=== PATIENT | female | born 1955 | race Caucasian/White ===

== ENCOUNTER 2018-08-15 09:47 | Emergency (ER) | payer OTHER, SELFPAY ==
[2018-08-15 09:50] VITALS: BP 152/99; PULSE 66; RESP 18; TEMP 36.3; O2SAT 99
[2018-08-15 10:13] LABS: Add Manual Diff / Slide Review NO; Basophils Absolute Auto 0 /uL (0-100); Basophils Percent Auto 0.5 % (0-2); Eosinophils Absolute Auto 0 /uL (0-450); Eosinophils Percent Auto 0.6 % (2-4); Hemoglobin 14.7 g/dL (12.0-16.0); Lymphocytes Absolute Auto 1400 /uL (1100-4500); Lymphocytes Percent Auto 19.6 % (25-40); Mean Corpuscular HGB Conc 34.2 % (30-36); Mean Corpuscular Hemoglobin 31.9 PG (26-34); Mean Corpuscular Volume 93.4 fL (80-100); Monocytes Absolute Auto 300 /uL (0-900); Monocytes Percent Auto 3.9 % (3-14); Neutrophils Absolute Auto 5600 /uL (1500-7000); Neutrophils Percent Auto 75.4 % (50-75); Platelet Count 157 X10^3/uL (150-400); Red Cell Distribution Width 12.8 % (11.6-14.8); White Blood Cell Count 7.4 X10^3/uL (4.5-11.0)
[2018-08-15] MEDS: SODIUM CHLORIDE 0.9% 1,000 ML 1000 ML IV (10:16)
[2018-08-15] MEDS: ONDANSETRON 4 MG/2 ML INJ IV (10:16)
[2018-08-15] MEDS: MECLIZINE HCL 12.5 MG TABLET 25 MG PO (10:17)
[2018-08-15 10:26] LABS: Alanine Aminotransferase 20 IU/L (9-52); Albumin 4.7 g/dL (3.5-5.0); Albumin Globulin Ratio 1.5 (1.0-2.8); Alkaline Phosphatase 78 U/L (38-126); Aspartate Aminotransferase 27 IU/L (14-36); BUN Creatinine Ratio 24.3 (6-22); Blood Urea Nitrogen 17 mg/dL (7-17); Calcium 9.3 mg/dL (8.4-10.2); Carbon Dioxide 29 mmol/L (22-32); Chloride 102 mmol/L (98-107); Estimated Glomerular Filt Rate > 60.0 mL/min (>60); Globulin 3.1 g/dL (1.7-4.1); Glucose 148 mg/dL (80-110); HEMOLYSIS < 15 (0-50); Potassium 3.8 mmol/L (3.4-5.1); Sodium 141 mmol/L (137-145); Total Protein 7.8 g/dL (6.3-8.2)
--- NOTE | 2018-08-15 10:29 | ED.DIZZY ---
HPI - Dizziness General Chief Complaint: Dizziness Stated Complaint: Acute dizziness, nausea Time Seen by Provider: 08/15/18 09:59 Source: patient Mode of arrival: ambulatory Limitations: no limitations History of Present Illness HPI Narrative: Patient is a 62-year-old female who presents with dizziness. His she said she was doing well and started early this morning when she woke up. Every time she stands up or moves she feels like the room is spinning. It does get better when she sits down. She has been nauseous she has vomited 1 time. She has no chest pain heart palpitations. It is definitely worse with her eyes open and better with her eyes closed. She has no weakness slurring of speech facial drooping numbness or tingling. MD complaint: dizziness Onset (ago): hour(s) Description: room spinning History of similar episodes: No History of trauma: No Related Data Previous Rx's Medication Instructions Recorded meclizine 25 mg PO TID PRN #14 tab 08/15/18 ondansetron 4 mg PO Q6-8H PRN #10 tab 08/15/18 Allergies Allergy/AdvReac Type Severity Reaction Status Date / Time No Known Drug Allergies Allergy Unverified 07/28/18 08:55 Review of Systems Review of Systems ROS Unobtainable: All systems reviewed & are unremarkable except as noted in HPI and below Constitutional Denies chills, Denies fever(s), Denies lethargy and Denies weakness Eyes Denies change in vision, Denies eye discharge, Denies irritation and Denies loss of vision ENT Ears, Nose, Mouth, and Throat: Denies change in voice, Denies neck pain and Denies sore throat Cardiovascular Denies chest pain, Denies irregular heart rhythm, Reports lightheadedness, Denies palpitations, Denies dyspnea, Denies dyspnea on exertion and Denies orthopnea Respiratory Denies cough, Denies dyspnea, Denies dyspnea on exertion and Denies wheezing Gastrointestinal Gastrointestinal: Denies abdominal pain, Denies change in bowel habits, Denies diarrhea, Denies nausea and Denies vomiting Musculoskeletal Denies neck pain Integumentary/Breasts Denies pruritus, Denies erythema, Denies rash and Denies wounds Neurologic Denies loss of vision and Denies weakness Endocrine Denies palpitations Allergic/Immunologic Denies wheezing [facility] Medical History Patient denies significant medical history (Acute) Social History Smoking Status: Never smoker Social History Smoking Status: Never smoker Exam Initial Vital Signs Initial Vital Signs: Vital Signs Temperature 97.4 F L 08/15/18 09:50 Pulse Rate 66 08/15/18 09:50 Respiratory Rate 18 08/15/18 09:50 Blood Pressure 152/99 H 08/15/18 09:50 Pulse Oximetry 99 08/15/18 09:50 GENERAL: Well-appearing, well-nourished and in no acute distress. HEENT: Head atraumatic,EOMI, pupils reactive, + nystagmus face symmetric, moist mucous membranes CARDIOVASCULAR: Regular rate and rhythm without murmurs, rubs or gallops. RESPIRATORY: Breath sounds equal bilaterally, no wheezes rales or rhonchi. ABDOMEN: Soft, nontender. Normoactive bowel sounds all 4 quadrants. No guarding or rebound. EXTREMITIES: Normal range of motion, no clubbing or edema. Neurovascularly intact NEUROLOGICAL: Alert and oriented x4.Normal gait and speech. Cranial nerves II through XII grossly intact. Good [id number], good [id number]-[id number], strength equal bilaterally, no dysarthria or aphasia, sensation in tact to soft touch bilaterally, no visual changes, no facial droop SKIN: Warm, dry, no laceration, no petechiae, no rashes or lesions. Scores NIH Stroke Scale Level of Conciousness: Alert, keenly responsive Ask month/age: Answers both questions correctly. Open/close eyes, close hand: Performs both tasks correctly Best gaze horizontal: Normal Visual frank: No visual loss Facial palsy: Normal symetrical movement Left arm drift: No drift for full 10 sec Right arm drift: No drift for full 10 sec Left leg drift: No drift for full 10 sec Right leg drift: No drift for full 10 sec Limb ataxia: Absent Sensory on face/arms/legs: Normal, no sensory loss Best language: No aphasia, normal Dysarthria: Normal Extinction or inattention: No abnormality Total NIH Stroke scale score: 0 Course Orders Ordered: ED Orders 08/15/18 09:55 Complete Blood Count AUTO DIFF Stat Comprehensive Metabolic Panel Stat Discontinued Medications Sodium Chloride (Normal Saline 0.9%) 1,000 mls @ 1,000 mls/hr IV CONT LEW Last Infusion: 08/15/18 12:56 Dose: 0 mls/hr Admin: 08/15/18 10:16 Dose: 1,000 mls/hr Lorazepam (Ativan) 0.5 mg IV NOW ONE Stop: 08/15/18 11:33 Last Admin: 08/15/18 11:41 Dose: 0.5 mg Meclizine HCl (Antivert) 25 mg PO NOW ONE Stop: 08/15/18 10:01 Last Admin: 08/15/18 10:17 Dose: 25 mg Ondansetron HCl (Zofran) 4 mg IV NOW ONE Stop: 08/15/18 10:01 Last Admin: 08/15/18 10:16 Dose: 4 mg Ondansetron HCl (Zofran) 4 mg IV NOW ONE Stop: 08/15/18 11:41 Ondansetron HCl (Zofran Odt) 4 mg SL NOW ONE Stop: 08/15/18 13:09 Last Admin: 08/15/18 13:00 Dose: 4 mg Vital Signs - 8 hr 08/15/18 09:50 08/15/18 10:43 08/15/18 11:31 Temperature 97.4 F L Pulse Rate 66 60 67 Respiratory Rate 18 13 25 H Blood Pressure 152/99 H Blood Pressure [Right Arm] 130/76 127/71 Pulse Oximetry 99 99 100 08/15/18 12:30 Temperature Pulse Rate 75 Respiratory Rate 15 Blood Pressure Blood Pressure [Right Arm] 125/66 Pulse Oximetry 100 MDM - Dizziness Lab Data Attestation: I reviewed the patient's lab results. Result diagrams: 08/15/18 09:55 08/15/18 09:55 Lab Results 08/15/18 08/15/18 Range/Units 09:55 09:55 WBC 7.4 (4.5-11.0) X10^3/uL RBC 4.60 (4.0-5.2) X10^6/uL Hgb 14.7 (12.0-16.0) g/dL Hct 43.0 (36-46) % MCV 93.4 (80-100) fL MCH 31.9 (26-34) PG MCHC 34.2 (30-36) % RDW 12.8 (11.6-14.8) % Plt Count 157 (150-400) X10^3/uL Neut % (Auto) 75.4 H (50-75) % Lymph % (Auto) 19.6 L (25-40) % Kleberg % (Auto) 3.9 (3-14) % Eos % (Auto) 0.6 L (2-4) % Baso % (Auto) 0.5 (0-2) % Neut # (Auto) 5600 (1148-0339) /uL Lymph # (Auto) 1400 (2085-6079) /uL Kleberg # (Auto) 300 (0-900) /uL Eos # (Auto) 0 (0-450) /uL Baso # (Auto) 0 (0-100) /uL Sodium 141 (137-145) mmol/L Potassium 3.8 (3.4-5.1) mmol/L Chloride 102 (98-107) mmol/L Carbon Dioxide 29 (22-32) mmol/L BUN 17 (7-17) mg/dL Creatinine 0.70 (0.52-1.04) mg/dL Estimated GFR > 60.0 (>60) mL/min BUN/Creatinine Ratio 24.3 H (6-22) Glucose 148 H (80-110) mg/dL Calcium 9.3 (8.4-10.2) mg/dL Total Bilirubin 1.0 (0.2-1.3) mg/dL AST 27 (14-36) IU/L ALT 20 (9-52) IU/L Alkaline Phosphatase 78 (38-126) U/L Total Protein 7.8 (6.3-8.2) g/dL Albumin 4.7 (3.5-5.0) g/dL Globulin 3.1 (1.7-4.1) g/dL Albumin/Globulin Ratio 1.5 (1.0-2.8) ECG Data Attestation: I personally reviewed and interpreted this ECG as follows: Prior ECG tracings: not available for review Interpretation: Rate [address] changes ID interval 128 QRS 114 QTC 440 no T-wave inversion or sign of ischemia. No priors to compare MDM Narrative Medical decision making narrative: Patient is feeling better little after some Zofran and meclizine. However still nauseous S a little dizzy. Will try level of the Ativan. She went to sleep for some time briefly. Overall feeling better. She feels like she could go home and sleep at home. She is able to open her eyes. She still feels like the room is slightly spinning. At this time no focal deficits, at this time no need any imaging. IV was pulled she got ready for discharge. However she vomited. She got a dose of ODT Zofran. She still feels like she is able to go home she was offered head CT and more medication. However still opts for going home. Has been agrees with this. I discussed all findings with the patient and spouse, Education has been performed regarding treatment plan, diagnosis, warning signs and symptoms and all concerns have been addressed. Verbally agree with and understood all of the above. Discharge Plan Departure Patient Disposition: Home Clinical Impression: Vertigo Discharge Date/Time: 08/15/18 13:35 Interventions: ED Discharge Assessment Last Done: 08/15/18 12:56 Instructions: DI for Vertigo Activity Restrictions/Additional Instructions: *You have been diagnosed with vertigo *What to do: This should stop, increase activity as tolerated increase fluids as tolerated *Continue to take medications as directed--> Sent to [facility] in [place] Zofran 4 mg every 6-8 hours if needed for nausea or vomiting Meclizine 25 mg comes every 8 hours if needed for dizziness *Follow up with your primary care provider in 2-3 days *Return to ER if you should have persistent vomiting weakness and difficulty speaking facial droop or any new, worsening or concerning symptoms Prescriptions: New meclizine 25 mg tablet 25 mg PO TID PRN (Reason: motion sickness) Qty: 14 RF: 0 ondansetron 4 mg tablet,disintegrating 4 mg PO Q6-8H PRN (Reason: nausea and vomiting) Qty: 10 RF: 0 Referrals: Benson Irizarry MD [Primary Care Provider] -
[2018-08-15 10:43] VITALS: BP 130/76; PULSE 60; RESP 13; O2SAT 99
[2018-08-15 11:31] VITALS: BP 127/71; PULSE 67; RESP 25; O2SAT 100
[2018-08-15] MEDS: LORazepam 2 MG/ML INJ 0.5 MG IV (11:41)
[2018-08-15 12:30] VITALS: BP 125/66; PULSE 75; RESP 15; O2SAT 100
[2018-08-15] MEDS: ONDANSETRON 4 MG ODT SL (13:00)
--- NOTE | 2018-08-15 13:45 | PC.NURSE ---
Pt was Discharged from ER. Upon getting dressed became nauseous and had an episode of emesis. Provider aware. Received order for ODT Zofran. Allowed Pt to sit in room. Continued to feel nausea. Provider in room to see patient. Pt and spouse decided to discharge and if she is unable to keep anything down with the medications, to come back to emergency department. PT and spouse stated understanding. Continued with d/c at this time.
== END 2018-08-15 13:35 | disposition home or self-care (01) ==
PROVIDERS: Emergency Provider Emergency Medicine; PCP Family Medicine
DX: R42 Dizziness and giddiness (principal)
CPT/HCPCS: 36591; 80053; 85025; 96361; 96374; 96375; 99283; 99284; J2060; J2405

== ENCOUNTER → 2018-10-15 08:05 | Outpatient (CLI) | payer OTHER, SELFPAY ==
[2018-10-15 09:21] LABS: BUN Creatinine Ratio 23.8 (6-22); Blood Urea Nitrogen 19 mg/dL (7-17); Calcium 9.4 mg/dL (8.4-10.2); Carbon Dioxide 31 mmol/L (22-32); Chloride 101 mmol/L (98-107); Cholesterol 216 mg/dL (140-199); Estimated Glomerular Filt Rate > 60.0 mL/min (>60); Glucose 102 mg/dL (80-110); HDL Cholesterol 89 mg/dL (40-60); HEMOLYSIS < 15 (0-50); LDL Cholesterol Calculated 111 mg/dL (<100); Potassium 4.9 mmol/L (3.4-5.1); Sodium 139 mmol/L (137-145); Triglycerides 80 mg/dL (35-150)
[2018-10-15 09:52] LABS: Thyroid Stimulating Hormone 1.92 uIU/mL (0.47-4.68)
== END ==
PROVIDERS: PCP Family Medicine; Visit Provider Family Medicine
DX: R42 Dizziness and giddiness (principal)
CPT/HCPCS: 36415; 80048; 80061; 84443

== ENCOUNTER → 2018-10-27 16:00 | Outpatient (CLI) | payer OTHER, SELFPAY ==
--- NOTE | 2018-10-27 16:02 | DI.MRI.S_ITS ---
PROCEDURE: MR BRAIN (IAC) WWO CON INDICATIONS: vertigo TECHNIQUE: Noncontrast sagittal T1 spin echo, axial FLAIR, axial gradient echo, axial diffusion and ADC through the brain. Axial thin-slice 3D CISS, coronal TruFISP, axial T1 spin echo with fat saturation through the internal auditory canals. After the administration of contrast, thin slice axial and coronal T1 spin echo with fat saturation through the internal auditory canals, and axial T1 spin echo with fat saturation through the brain. COMPARISON: None. FINDINGS: Image quality: Excellent. Cerebellopontine angles: No cerebellopontine angle masses. Inner ear structures appear normally formed. No suspicious enhancement in the internal auditory canal or along the course of the 7th cranial nerve. CSF spaces: Ventricles are normal in size and shape. No extra-axial fluid collections. Basal cisterns are patent. Brain: No intracranial bleeds or mass effects. Willams-white matter interface is intact. No abnormal intracranial enhancement. Diffusion weighted images demonstrate no acute ischemic insults. Brainstem appears normal. Normal intravascular flow voids are present. Skull and face: Calvarial marrow signal is normal. Orbits appear normal. Sinuses: Sinuses and mastoids are clear. IMPRESSION: No abnormal enhancement or discrete mass seen within the cerebellopontine angle, or IAC. No evidence of acute ischemia. Diffuse small white matter signal changes, probably represent chronic microvascular ischemic disease, versus statistically less likely demyelination or other infectious, inflammatory, neurodegenerative etiology, technically nonspecific. Dictated by: Kee Milian M.D. on 10/27/2018 at 17:04 Approved by: Kee Milian M.D. on 10/27/2018 at 17:14
== END ==
PROVIDERS: PCP Family Medicine; Visit Provider Family Medicine
DX: R42 Dizziness and giddiness (principal)
CPT/HCPCS: 70553; A9579

== ENCOUNTER → 2019-03-18 13:55 | Outpatient (CLI) | payer BC, SELFPAY ==
--- NOTE | 2019-03-18 13:58 | DI.RAD.S_ITS ---
PROCEDURE: XR LUMBAR SPINE 2-3V INDICATIONS: acute pain TECHNIQUE: 3 views of the lumbar spine were acquired. COMPARISON: None. FINDINGS: Bones: 5 [id number] vertebrae are present. There is gentle levocurvature of the lumbar spine. No acute vertebral body compression fractures. Minimal multilevel mid and lower lumbar spondylitic changes with associated mild facet arthrosis. No suspicious bony lesions. Soft tissues: Overlying bowel gas pattern is normal. No suspicious soft tissue calcifications. IMPRESSION: Lumbar spine without acute osseous abnormalities. Mild multilevel mid and lower lumbar spondylosis. Dictated by: Sumit Norman M.D. on 03/18/2019 at 21:51 Approved by: Sumit Norman M.D. on 03/18/2019 at 21:52
== END ==
PROVIDERS: PCP Family Medicine; Visit Provider Family Medicine
DX: M54.5 Low back pain (principal); M47.816 Spondylosis without myelopathy or radiculopathy, lumbar region
CPT/HCPCS: 72100

== ENCOUNTER → 2019-08-02 10:53 | Outpatient (CLI) | payer BC, SELFPAY ==
--- NOTE | 2019-08-02 10:54 | DI.RAD.S_ITS ---
PROCEDURE: XR HAND RT MIN 3V INDICATIONS: Right thumb pain TECHNIQUE: 3 views of the hand(s) acquired. COMPARISON: None. FINDINGS: Bones: No fractures or dislocations. Carpal bones are normally aligned. No suspicious bony lesions. Diffuse interphalangeal degenerative changes. Soft tissues: No suspicious soft tissue calcifications. IMPRESSION: Mild degenerative changes as above. If the patient's pain or other symptoms persist, consider further evaluation with MRI Dictated by: Kee Milian M.D. on 08/02/2019 at 14:41 Approved by: Kee Milian M.D. on 08/02/2019 at 14:42
== END ==
PROVIDERS: PCP Family Medicine; Referring Provider Family Medicine; Visit Provider Family Medicine
DX: M79.644 Pain in right finger(s) (principal)
CPT/HCPCS: 73130

== ENCOUNTER → 2020-09-29 09:49 | Outpatient (CLI) | payer BC, SELFPAY | PROVIDERS: PCP Family Medicine; Visit Provider Physician Assistant | DX: L72.3 Sebaceous cyst (principal) | CPT/HCPCS: 87070; 87205 ==

== ENCOUNTER → 2020-10-19 12:02 | Outpatient (CLI) | payer BC, SELFPAY ==
[2020-10-20 09:31] LABS: Fecal Immunochemical Test Negative (Negative)
== END ==
PROVIDERS: PCP Internal Medicine; Referring Provider Internal Medicine; Visit Provider Internal Medicine
DX: Z12.11 Encounter for screening for malignant neoplasm of colon (principal)
CPT/HCPCS: 82274

== ENCOUNTER → 2022-06-12 10:22 | Outpatient (CLI) | payer BC, SELFPAY ==
[2022-06-13 12:36] LABS: Fecal Immunochemical Test Negative (Negative)
== END ==
PROVIDERS: PCP Internal Medicine; Referring Provider Internal Medicine; Visit Provider Internal Medicine
DX: Z12.11 Encounter for screening for malignant neoplasm of colon (principal); Z12.12 Encounter for screening for malignant neoplasm of rectum
CPT/HCPCS: 82274